=== PATIENT | female | born 1990 ===

== ENCOUNTER 2019-10-29 18:26 | Outpatient (CLI) | payer BC ==
[2019-10-29 20:25] VITALS: BP 124/80; PULSE 97; RESP 16; TEMP 97
--- NOTE | 2019-10-31 11:37 | P.MSEPDOC ---
Presenting Problems - Arrival Data Date of Arrival on Unit: 10/29/19 Time of Arrival on Unit: 18:26 Mode of Transport: Ambulatory - Complaint OB-Reason for Admission/Chief Complaint: Possible Onset of Labor Medical History - Information : 2 Para: 1 Term: 1 : 0 Abortions: Spontaneous or Elective: 0 Number of Living Children: 1 - Gestational Age Gestational Age by CARRIE (wks/days): 35 Weeks and 2 Days Review of Systems - Review of Systems Constitutional: No problems Breast: No problems ENT: No problems Cardiovascular: No problems Respiratory: No problems Gastrointestinal: No problems Genitourinary: No problems Musculoskeletal: No problems Neurological: No problems Skin: No problems Vital Signs - Temperature Temperature: 97.0 F Temperature Source: Axillary - Pulse Right Pulse Rate: 97 Pulse Assessment Method: Automatic Cuff - Respirations Respiratory Rate: 16 Oxygen Delivery Method: Room Air - Blood Pressure Right Arm Blood Pressure: 124/80 Blood Pressure Mean: 94 Blood Pressure Source: Automatic Cuff Medical Screen Scoring (Pre) - Cervical Exam Dilation: 0 cm = 0 Effacement: More than 50% = 2 Membranes: Intact - Uterine Contractions Frequency: > 5 minutes apart = 1 Duration: N/A Intensity: N/A - Maternal Vital Signs Maternal Temperature: N/A Maternal Blood Pressure: N/A Signs of Preeclampsia: N/A Maternal Respirations: N/A - Maternal Trauma Maternal Trauma: N/A - Assessment - Baby A Baseline FHR: 135 Heart Rate - NICHD Category: Category II (Indeterminate) = 3 NST: Reactive Position: N/A Station: N/A - Total Score - Baby A Total Score - Baby A: 6 - Total Score - Baby B Total Score - Baby B: 3 - Total Score - Baby C Total Score - Baby C: 3 - Level of Risk - Baby A Level of Risk - Baby A: Medium (6-9) - Level of Risk - Baby B Level of Risk - Baby B: Low (0-5) - Level of Risk - Baby C Level of Risk - Baby C: Low (0-5) Physician Notification (Pre) - Physician Notified Physician Notified Date: 10/29/19 Physician Notified Time: 19:41 New Order Received: Yes - Notification Comment Comment: DC home with follow up Disposition - Disposition OB Disposition: Discharge to home Discharge Date: 10/29/19 Discharge Time: 20:05 I agree with the RN Medical Screening Exam: Yes Risk & Benefit of care provided described in d/c instruction: Yes Diagnosis: false labor
== END 2019-10-29 20:05 | disposition home or self-care (01) ==
LOC: FBPOP 18:26
PROVIDERS: ATTEND Obstetrics & Gynecology
DX: O47.9 False labor, unspecified (principal); Z3A.35 35 weeks gestation of pregnancy
CPT/HCPCS: 59025; 99213

== ENCOUNTER 2019-11-09 16:50 | Outpatient (CLI) | payer BC ==
[2019-11-09] MEDS ORDERED: LACTATED RINGERS 1,000 ML IV SCH (18:00)
[2019-11-09 20:48] VITALS: BP 114/63; PULSE 78; RESP 16; TEMP 98.4
--- NOTE | 2019-12-13 07:45 | P.MSEPDOC ---
Presenting Problems - Arrival Data Date of Arrival on Unit: 11/09/19 Time of Arrival on Unit: 16:50 Mode of Transport: Ambulatory - Complaint OB-Reason for Admission/Chief Complaint: Possible Onset of Labor Comment: contractions since this morning Medical History - Information : 2 Para: 1 Term: 1 : 0 Abortions: Spontaneous or Elective: 0 Number of Living Children: 1 - Gestational Age Gestational Age by CARRIE (wks/days): 37 Weeks and 1 Days Review of Systems - Review of Systems Constitutional: No problems Breast: No problems ENT: No problems Cardiovascular: No problems Respiratory: No problems Gastrointestinal: No problems Genitourinary: No problems Musculoskeletal: No problems Neurological: No problems Skin: No problems Vital Signs - Temperature Temperature: 98.4 F Temperature Source: Temporal Artery Scan - Pulse Right Pulse Rate: 78 Pulse Assessment Method: Automatic Cuff - Respirations Respiratory Rate: 16 Oxygen Delivery Method: Room Air O2 Sat by Pulse Oximetry: 99 - Blood Pressure Right Arm Blood Pressure: 114/63 Blood Pressure Mean: 80 Blood Pressure Source: Automatic Cuff Medical Screen Scoring (Pre) - Cervical Exam Dilation: 1-3 cm = 1 Membranes: Intact - Uterine Contractions Frequency: > or = 36 weeks =2 Duration: > 40 seconds = 2 Intensity: N/A - Maternal Vital Signs Maternal Temperature: N/A Maternal Blood Pressure: N/A Signs of Preeclampsia: N/A Maternal Respirations: N/A - Maternal Trauma Maternal Trauma: N/A - Assessment - Baby A Baseline FHR: 130 Heart Rate - NICHD Category: Category I (Normal) = 0 NST: Reactive Position: N/A Station: N/A - Total Score - Baby A Total Score - Baby A: 5 - Total Score - Baby B Total Score - Baby B: 5 - Total Score - Baby C Total Score - Baby C: 5 - Level of Risk - Baby A Level of Risk - Baby A: Low (0-5) - Level of Risk - Baby B Level of Risk - Baby B: Low (0-5) - Level of Risk - Baby C Level of Risk - Baby C: Low (0-5) Physician Notification (Pre) - Physician Notified Physician Notified Date: 11/09/19 Physician Notified Time: 19:05 New Order Received: Yes (d/c with instruction) - Notification Comment Comment: less pain after 1 liter of fluid, still samantha, no cervical change, fhts wnl Disposition - Disposition OB Disposition: Triage, Discharge to home, Written follow up instructions reviewed Discharge Date: 11/09/19 Discharge Time: 19:30 I agree with the RN Medical Screening Exam: No Physician's MSE Comment: insufficient documentation Risk & Benefit of care provided described in d/c instruction: No Diagnosis: falsely labor
== END 2019-11-09 19:30 | disposition home or self-care (01) ==
LOC: FBPOP 16:50
PROVIDERS: ATTEND Obstetrics & Gynecology Obstetrics
DX: O47.1 False labor at or after 37 completed weeks of gestation (principal); Z3A.37 37 weeks gestation of pregnancy
CPT/HCPCS: 59025; 96360; 99214

== ENCOUNTER 2019-11-22 06:10 | Inpatient (IN) | payer BC ==
[2019-11-22] MEDS ORDERED: OXYTOCIN 10 UNIT/ML 1 ML VIAL IM PRN (06:44)
[2019-11-22] MEDS ORDERED: TERBUTALINE 1 MG/ML VIAL SQ PRN (06:44)
[2019-11-22] MEDS ORDERED: CARBOPROST TROMETHAMINE 250 MCG/ML 1 ML AMP IM PRN (06:44)
[2019-11-22] MEDS ORDERED: LIDOCAINE 0.5% (PF) 5 MG/ML (50 ML SDV) SQ PRN (06:44)
[2019-11-22] MEDS ORDERED: METHYLERGONOVINE 0.2 MG/ML 1 ML AMP IM PRN (06:44)
[2019-11-22] MEDS ORDERED: OXYTOCIN 30 UNITS/500 ML NS 30 UNIT in SALINE 1 500ML.BAG IV SCH (06:45)
[2019-11-22 06:54] LABS: Basophils % (A) 0 %; Eosinophils # (A) 0.1 k/uL (0-0.7); Eosinophils % (A) 1 %; HCT 31.7 % (34.0-46.0); HGB 10.3 gm/dL (11.4-16.0); Lymphocytes # (A) 1.4 k/uL (1.0-4.8); Lymphocytes % (A) 13 %; MCH 30.5 pg (25.0-35.0); MCHC 32.5 g/dL (31.0-37.0); MCV 93.9 fL (80.0-100.0); Mean Platelet Volume 7.7; Monocytes # (A) 0.5 k/uL (0-1.0); Monocytes % (A) 5 %; Neutrophils # (A) 8.5 k/uL (1.3-7.7); Neutrophils % (A) 80 %; Platelet Count 285 k/uL (150-450); Poikilocytosis Slight; RBC 3.38 m/uL (3.80-5.40); RDW 14.4 % (11.5-15.5); WBC 10.6 k/uL (3.8-10.6)
[2019-11-22] MEDS: LACTATED RINGERS 1,000 ML IV SCH ×2 (06:59→13:58)
--- NOTE | 2019-11-22 08:36 | P.HPOB ---
History of Present Illness H&P Date: 11/22/19 Chief Complaint: IUP at 39-0/7 weeks This is a 29-year-old 2 para 1001 at 39-0/7 weeks estimated due date of 9:30 that presents for elective induction of labor. Patient has been receiving care with myself since the third trimester. Patient states she was u nable to obtain care previously with another provider. Patient has been compliant with care with myself. This a.m. she notes good movement, denies contractions vaginal bleeding or loss of fluid. On bloodwork patient has a blood type of A+, respond well as status immune, B surface antigen negative, HIV negative, RPR nonreactive, group beta strep is negative. Review of Systems Constitutional: Denies chills Ears, nose, mouth and throat: Denies headache Cardiovascular: Reports leg edema Respiratory: Denies dyspnea Gastrointestinal: Denies constipation, Denies diarrhea, Denies nausea, Denies vomiting Genitourinary: Reports Past Medical History Past Medical History: No Reported History History of Any Multi-Drug Resistant Organisms: None Reported Past Surgical History: No Surgical Hx Reported Past Anesthesia/Blood Transfusion Reactions: No Reported Reaction Past Psychological History: No Psychological Hx Reported Smoking Status: Never smoker Past Drug Use History: Marijuana Additional Drug Use History / Comment(s): 1 month ago last marijuana - Past Family History Father Family Medical History: No Reported History Medications and Allergies Home Medications Medication Instructions Recorded Confirmed Type Pnv No.95/Ferrous Fum/Folic AC 1 tab PO DAILY 10/29/19 11/09/19 History [ Multivitamin Tablet] Allergies Allergy/AdvReac Type Severity Reaction Status Date / Time No Known Allergies Allergy Verified 11/09/19 17:55 Exam Osteopathic Statement: *. No significant issues noted on an osteopathic structural exam other than those noted in the History and Physical/Consult. Vital Signs Temp Pulse Resp BP 11/22/19 06:49 98.6 F 90 18 133/79 Intake and Output 11/21/19 11/22/19 11/22/19 22:59 06:59 14:59 Other: Weight 87.997 kg Targeted physical exam is performed in this date in general this is a well- nourished well-developed female in no acute distress breathing is noted to be nonlabored, heart has a regular rate and rhythm, abdomen is gravid and appropriate for gestational age, heart tones returned be category 1 and she is samantha irregularly, on cervical exam she is 2/60/-2 station, amniotomy is performed performed. Clear fluid is obtained. Results Result Diagrams: 11/22/19 06:43 Abnormal Lab Results - Last 24 Hours (Table) 11/22/19 Range/Units 06:43 RBC 3.38 L (3.80-5.40) m/uL Hgb 10.3 L (11.4-16.0) gm/dL Hct 31.7 L (34.0-46.0) % Neutrophils # 8.5 H (1.3-7.7) k/uL Assessment and Plan (1) Term Current Visit: Yes Status: Acute Code(s): Z34.90 - ENCNTR FOR SUPRVSN OF NORMAL , UNSP, UNSP TRIMESTER SNOMED Code(s): 46761037 (2) H/O chlamydia infection Current Visit: Yes Status: Acute Code(s): Z86.19 - PERSONAL HISTORY OF OTHER INFECTIOUS AND PARASITIC DISEASES SNOMED Code(s): 843449363 (3) Late care Current Visit: Yes Status: Acute Code(s): O09.30 - SUPRVSN OF PREG W INSUFFICIENT ANTENAT CARE, UNSP TRIMESTER SNOMED Code(s): 203455450 Plan: This 29-year-old 2 para 1001 presents to labor and delivery for elective induction of labor. Patient is started on Pitocin induction of labor per hospital protocol. Patient declines epidural or Stadol although both are discussed. Anticipate spontaneous vaginal delivery later today.
[2019-11-22 11:41] LABS: Amphetamine Screen,Urine Not Detected (NotDetected); Barbiturate Screen,Urine Not Detected (NotDetected); Benzodiazepines Screen,Urine Not Detected (NotDetected); Cocaine Screen,Urine Not Detected (NotDetected); Methadone Screen, Urine Not Detected (NotDetected); Opiate Screen,Urine Not Detected (NotDetected); Oxycodone Screen, Urine Not Detected (NotDetected); Phencyclidine Screen,Urine Not Detected (NotDetected); Tricyclic Antidepressant,Urine Not Detected (NotDetected); Urn Cannabinoid Scrn Not Detected (NotDetected)
[2019-11-22] MEDS ORDERED: HYDROcodone/APAP 5-325MG 1 EACH TAB PO PRN (17:07)
[2019-11-22] MEDS ORDERED: LANOLIN CREAM 5 GM TUBE TOPICAL PRN (17:07)
[2019-11-22] MEDS ORDERED: BENZOCAINE/MENTHOL SPRAY 1 GM/SPRAY AEROSOL TOPICAL PRN (17:07)
[2019-11-22] MEDS ORDERED: ZOLPIDEM 5 MG TAB PO PRN (17:07)
[2019-11-22] MEDS ORDERED: ACETAMINOPHEN TAB 325 MG TAB PO PRN (17:07)
[2019-11-22] MEDS ORDERED: diphenhydrAMINE 25 MG CAP PO PRN (17:07)
[2019-11-22] MEDS ORDERED: diphenhydrAMINE 50 MG/ML 1 ML VIAL IVP PRN ×2 (17:07)
[2019-11-22] MEDS ORDERED: HYDROCORTISONE 2.5% RECTAL CREAM 30 GM TUBE RECTAL PRN (17:07)
[2019-11-22] MEDS ORDERED: diphenhydrAMINE 50 MG CAP PO PRN (17:07)
[2019-11-22] MEDS ORDERED: SIMETHICONE 80 MG CHEWABLE PO PRN (17:07)
[2019-11-22] MEDS ORDERED: OXYTOCIN 20 UNITS/1000 ML NS 1,000 ML IV SCH (17:15)
--- NOTE | 2019-11-22 17:15 | P.PROBDLV ---
Vaginal Delivery Note - . Vaginal Delivery Note: This is a 29-year-old 2 para 1001 at 39-0/7 weeks that presented to labor and delivery for elective induction of labor. Patient had late care she was unable to find a provider. Patient was compliant with care with myself. Patient did have a positive Chlamydia culture on first exam with myself. This culture was repeated and the results are pending. Patient was admitted to labor and delivery and Pitocin induction of labor was begun per hospital protocol. Patient underwent amniotomy and clear fluid was obtained. Patient progressed slowly through labor eventually becoming complete. Patient began pushing and after excellent maternal effort she had a normal spontaneous vaginal delivery of a viable female infant at 1649, weight of 7 lbs. 9 oz. with Apgars of 7 and 9 at one and 5 minutes respect daily. After a two-minute delayed the umbilical cord was doubly clamped and cut. The placenta was delivered spontaneously intact with a three-vessel cord being noted. A first- degree perineal laceration was noted injected with lidocaine and repaired with 3-0 repeat in the usual fashion. The uterus is noted to be firm and below the umbilicus, estimated blood loss 300 mL. Romulus catheter was used to drain the bladder of approximately 150 mL of clear yellow urine. All counts were noted to be correct 2, patient and infant tolerated delivery well and are resting comfortably.
[2019-11-22] MEDS: IBUPROFEN 600 MG TAB PO PRN (19:51)
[2019-11-22] MEDS: SENNOSIDES-DOCUSATE SODIUM 1 EACH TAB PO SCH (19:51)
[2019-11-23] MEDS: IBUPROFEN 600 MG TAB PO PRN ×2 (04:37→16:08)
[2019-11-23] MEDS: SENNOSIDES-DOCUSATE SODIUM 1 EACH TAB PO SCH ×2 (08:26→19:37)
[2019-11-23 08:28] LABS: Basophils % (A) 0 %; Eosinophils # (A) 0.4 k/uL (0-0.7); Eosinophils % (A) 2 %; HCT 31.1 % (34.0-46.0); HGB 10.1 gm/dL (11.4-16.0); Lymphocytes # (A) 0.6 k/uL (1.0-4.8); Lymphocytes % (A) 3 %; MCH 30.7 pg (25.0-35.0); MCHC 32.6 g/dL (31.0-37.0); MCV 94.1 fL (80.0-100.0); Mean Platelet Volume 7.6; Monocytes # (A) 0.5 k/uL (0-1.0); Monocytes % (A) 3 %; Neutrophils # (A) 19.6 k/uL (1.3-7.7); Neutrophils % (A) 92 %; Platelet Count 226 k/uL (150-450); Poikilocytosis Slight; RDW 14.5 % (11.5-15.5); WBC 21.3 k/uL (3.8-10.6)
--- NOTE | 2019-11-23 08:28 | P.DS ---
Providers Date of admission: 11/22/19 06:10 Expected date of discharge: 11/23/19 Attending physician: Adelia Gary Primary care physician: Stated None - Discharge Diagnosis(es) (1) Term Current Visit: Yes Status: Acute (2) H/O chlamydia infection Current Visit: Yes Status: Acute (3) Late care Current Visit: Yes Status: Acute (4) Status post vaginal delivery Current Visit: Yes Status: Acute Hospital Course: This is a 29-year-old 2 para 1001 that presented to labor and delivery at 39-0/7 weeks. Patient presented for elective induction of labor. Patient had been receiving late care with myself that she was unable to find a provider prior to me. Patient was compliant with care during our time together. Patient was admitted to labor and delivery and Pitocin induction of labor was begun. Patient underwent amniotomy and clear fluid was obtained. Patient made slow progress eventually becoming complete and having a normal spontaneous vaginal delivery of a viable female at 1649 weight of 7 lbs. 9 oz. Apgars of 7 and 9 at one and 5 minutes respectively. Patient did sustain a first- degree perineal laceration which was repaired in usual fashion. On this post day #1 she is ambulating and voiding without difficulty. She is tolerating a regular diet without nausea or vomiting. She states she is feeling well and would like discharge home. Patient Condition at Discharge: Good Plan - Discharge Summary New Discharge Prescriptions: No Action Pnv No.95/Ferrous Fum/Folic AC [ Multivitamin Tablet] 1 tab PO DAILY Discharge Medication List Pnv No.95/Ferrous Fum/Folic AC [ Multivitamin Tablet] 1 tab PO DAILY 10/29/19 [History] Follow up Appointment(s)/Referral(s): Adelia Gary DO [Doctor of Osteopathic Medicine] - 4 Weeks Patient Instructions/Handouts: Vaginal Delivery (GEN), Vaginal Delivery (DC) Activity/Diet/Wound Care/Special Instructions: Patient can expect. Like bleeding for 4-6 weeks after delivery. Patient is urged to avoid tub baths or intercourse until 6 weeks . Patient is to call the office with any concerns prior to her appointment. [id number] ibuprofen 600 mg every 6 hours as needed for pain. Discharge Disposition: HOME SELF-CARE
[2019-11-24] MEDS: IBUPROFEN 600 MG TAB PO PRN ×3 (00:20→14:39)
[2019-11-24] MEDS: SENNOSIDES-DOCUSATE SODIUM 1 EACH TAB PO SCH (07:29)
[2019-11-24 07:37] VITALS: BP 118/73; PULSE 88; RESP 16; TEMP 97.6
== END 2019-11-24 15:40 | disposition home or self-care (01) | DRG 807 ==
LOC: 4FBP 06:10
PROVIDERS: ADMIT Obstetrics & Gynecology Obstetrics; ATTEND Obstetrics & Gynecology Obstetrics
PROC: 10907ZC Drainage of Amniotic Fluid, Therapeutic from Products of Conception, Via Natural or Artificial Opening (ICD-10-PCS; principal; 2019-11-22)
PROC: 3E033VJ Introduction of Other Hormone into Peripheral Vein, Percutaneous Approach (ICD-10-PCS; principal; 2019-11-22)
PROC: 10E0XZZ Delivery of Products of Conception, External Approach (ICD-10-PCS; principal; 2019-11-22)
PROC: 0HQ9XZZ Repair Perineum Skin, External Approach (ICD-10-PCS; principal; 2019-11-22)
DX: O70.0 First degree perineal laceration during delivery (principal); Z37.0 Single live birth; Z3A.39 39 weeks gestation of pregnancy; Z86.19 Personal history of other infectious and parasitic diseases
CPT/HCPCS: 80306; 85025; 86850; 86900; 86901